=== PATIENT | male | born 1955 | race Caucasian/White ===

== ENCOUNTER 2018-01-06 08:20 | Emergency (ER) | payer MEDICAID ==
[~2018-01-06 08:20] MED LIST: AMITRIPTYLINE H50 MG PO; ATENOLOL25 MG PO; CHILDREN'S ASPI81 M1 PO; CLOPIDOGREL PO; DANTHRON75 MG PO; GLIPIZIDE10 M2 PO; KLOR-CON M1010 MEQ PO; LASIX40 M1 PO; LISINOPRIL10 MG PO; LORTAB 5/3251 TAB PO; RANITIDINE 150150 MG PO; SIMVASTATIN40 M1 PO; VITAMIN D32000 I1 PO
[2018-01-06 08:24] VITALS: BP 132/84
== END 2018-01-06 10:02 | disposition left against medical advice (07) ==
LOC: ED 08:20
DX: M20.5X1 Other deformities of toe(s) (acquired), right foot (principal); Z53.21 Procedure and treatment not carried out due to patient leaving prior to being seen by health care provider

== ENCOUNTER 2018-08-01 10:12 | Emergency (ER) | payer MEDICAID | END 2018-08-01 10:30 | disposition home or self-care (01) | LOC: ED 10:12 | DX: S93.501A Unspecified sprain of right great toe, initial encounter (principal); L60.0 Ingrowing nail; S93.504A Unspecified sprain of right lesser toe(s), initial encounter; E11.9 Type 2 diabetes mellitus without complications; I10 Essential (primary) hypertension; I25.10 Atherosclerotic heart disease of native coronary artery without angina pectoris; G47.33 Obstructive sleep apnea (adult) (pediatric); Z88.0 Allergy status to penicillin; W22.09XA Striking against other stationary object, initial encounter; Y92.009 Unspecified place in unspecified non-institutional (private) residence as the place of occurrence of the external cause ==

== ENCOUNTER 2018-11-05 11:03 | Emergency (ER) | payer MEDICAID ==
[~2018-11-05] VITALS: Ht 170.2 cm; Wt 119.5 kg
[~2018-11-05 11:03] MED LIST changes: +AMITRIPTYLINE H50 M1 PO; -AMITRIPTYLINE H50 MG PO; +CEPHALEXIN500 M1 PO; -DANTHRON75 MG PO; +NITROSTAT0.4 M1 SL; +NORCO 325 MG-51 TA1 PO; +NORCO 325 MG-7.1 TA1 PO; +SINGULAIR PO; +VITAMIN D 1001000 IU PO; -VITAMIN D32000 I1 PO
[2018-11-05 11:25] LABS: EOS # 0.2 (0.04-0.40); EOS % 2.5 % (0.0-4.0); HEMATOCRIT 45.9 % (42.0-52.0); HEMOGLOBIN 14.7 g/dL (13.5-18.0); LYMPH# 2.3 (1.50-4.00); MEAN CELL VOLUME 86 fl (78-100); MEAN CORPUSCULAR HEMOGLOBIN 27 pg (27-31); MEAN CORPUSCULAR HGB CONC 32 g/dL (33-37); MEAN PLATELET VOLUME 9.3 fl (7.4-10.4); MONO # 0.9 (0.20-0.80); NEU # 5.8 (1.40-6.50); PLATELET COUNT 230 K/mm3 (130-400); RED BLOOD COUNT 5.37 M/mm3 (4.20-5.60); RED CELL DISTRIBUTION WIDTH 14.2 % (11.5-14.5); WHITE BLOOD COUNT 9.2 K/mm3 (4.8-10.8)
[2018-11-05] MEDS ORDERED: CEPHALEXIN500 M1 PO (11:27)
[2018-11-05] MEDS ORDERED: VIBRAMYCIN HYC100 MG PO (11:38)
[2018-11-05 11:41] VITALS: BP 125/89
[2018-11-05 11:42] LABS: CALCIUM 9.3 mg/dL (8.3-10.5); POTASSIUM 4.1 mmol/L (3.5-5.1)
== END 2018-11-05 11:45 | disposition home or self-care (01) ==
LOC: ED 11:03
PROVIDERS: Nurse Practitioner Primary Care
DX: L03.114 Cellulitis of left upper limb (principal); I25.10 Atherosclerotic heart disease of native coronary artery without angina pectoris; I10 Essential (primary) hypertension; Z79.82 Long term (current) use of aspirin; Z79.02 Long term (current) use of antithrombotics/antiplatelets; Z85.038 Personal history of other malignant neoplasm of large intestine; Z90.49 Acquired absence of other specified parts of digestive tract; Z88.0 Allergy status to penicillin; W57.XXXA Bitten or stung by nonvenomous insect and other nonvenomous arthropods, initial encounter

== ENCOUNTER 2018-12-08 00:56 | Emergency (ER) | payer MEDICAID ==
[~2018-12-08] VITALS: Ht 170.2 cm; Wt 100.0 kg
[~2018-12-08 00:56] MED LIST changes: +VIBRAMYCIN HYC100 MG PO
[2018-12-08 01:37] VITALS: BP 126/92
[2018-12-08 02:06] LABS: EOS # 0.3 (0.04-0.40); EOS % 3.5 % (0.0-4.0); HEMATOCRIT 45.8 % (42.0-52.0); HEMOGLOBIN 14.6 g/dL (13.5-18.0); LYMPH# 2.2 (1.50-4.00); MEAN CELL VOLUME 86 fl (78-100); MEAN CORPUSCULAR HEMOGLOBIN 27 pg (27-31); MEAN CORPUSCULAR HGB CONC 32 g/dL (33-37); MEAN PLATELET VOLUME 9.6 fl (7.4-10.4); PLATELET COUNT 217 K/mm3 (130-400); RED BLOOD COUNT 5.34 M/mm3 (4.20-5.60); RED CELL DISTRIBUTION WIDTH 14.7 % (11.5-14.5); WHITE BLOOD COUNT 8.5 K/mm3 (4.8-10.8)
[2018-12-08 02:14] LABS: ALBUMIN 3.5 g/dL (3.4-4.8)
[2018-12-08 02:15] LABS: POTASSIUM 4.1 mmol/L (3.5-5.1)
[2018-12-08 02:16] LABS: CALCIUM 8.9 mg/dL (8.3-10.5)
[2018-12-08 02:19] LABS: TOTAL BILIRUBIN 0.3 mg/dL (0.2-1.2)
[2018-12-08] MEDS ORDERED: TOPROL XL 25MG25 MG PO (03:10)
[2018-12-08] MEDS ORDERED: CELEXA 20MG20 MG/TA1 PO (03:11)
[2018-12-08] MEDS ORDERED: ACID REDUCER 1150 MG PO (03:11)
[2018-12-08 03:13] LABS: URINE APPEARANCE CLEAR; URINE BILIRUBIN NEGATIVE (NEGATIVE); URINE BLOOD NEGATIVE (NEGATIVE); URINE COLOR YELLOW; URINE GLUCOSE NEGATIVE (NEGATIVE); URINE KETONE NEGATIVE (NEGATIVE); URINE LEUKOCYTE ESTERASE NEGATIVE (NEGATIVE); URINE MUCUS PRESENT (NOT PRESENT); URINE NITRATE NEGATIVE (NEGATIVE); URINE PROTEIN(semi-quant) NEGATIVE (NEGATIVE); URINE UROBILINOGEN NORMAL (NORMAL); URINE WBC 0-1 /hpf (0-3)
[2018-12-08] MEDS ORDERED: CYCLOBENZAPRINE10 M1 PO (03:28)
[2018-12-08] MEDS ORDERED: NORCO 325 MG-51 TA1 PO (03:28)
== END 2018-12-08 03:40 | disposition home or self-care (01) ==
LOC: ED 00:56
PROVIDERS: Physician Assistant
DX: S22.31XA Fracture of one rib, right side, initial encounter for closed fracture (principal); I25.10 Atherosclerotic heart disease of native coronary artery without angina pectoris; F32.9 Major depressive disorder, single episode, unspecified; E11.9 Type 2 diabetes mellitus without complications; Z79.4 Long term (current) use of insulin; Z95.5 Presence of coronary angioplasty implant and graft; Z98.890 Other specified postprocedural states; Z79.82 Long term (current) use of aspirin; Z88.0 Allergy status to penicillin; W06.XXXA Fall from bed, initial encounter; Y92.009 Unspecified place in unspecified non-institutional (private) residence as the place of occurrence of the external cause
CPT/HCPCS: J1885

== ENCOUNTER → 2019-01-19 | Outpatient (CLI) | payer MEDICAID ==
[~2019-01-19] MED LIST changes: +ACID REDUCER 1150 MG PO; +CELEXA 20MG20 MG/TA1 PO; +CYCLOBENZAPRINE10 M1 PO; +TOPROL XL 25MG25 MG PO
[2019-01-19 09:32] LABS: EOS # 0.2 (0.04-0.40); EOS % 2.7 % (0.0-4.0); HEMATOCRIT 49.7 % (42.0-52.0); HEMOGLOBIN 15.9 g/dL (13.5-18.0); LYMPH# 1.4 (1.50-4.00); MEAN CELL VOLUME 85 fl (78-100); MEAN CORPUSCULAR HEMOGLOBIN 27 pg (27-31); MEAN CORPUSCULAR HGB CONC 32 g/dL (33-37); MEAN PLATELET VOLUME 9.6 fl (7.4-10.4); MONO # 0.5 (0.20-0.80); NEU # 4.1 (1.40-6.50); PLATELET COUNT 248 K/mm3 (130-400); RED BLOOD COUNT 5.87 M/mm3 (4.20-5.60); RED CELL DISTRIBUTION WIDTH 14.6 % (11.5-14.5); WHITE BLOOD COUNT 6.2 K/mm3 (4.8-10.8)
[2019-01-19 09:39] LABS: ALBUMIN 3.8 g/dL (3.4-4.8); CALCIUM 9.6 mg/dL (8.3-10.5)
[2019-01-19 09:42] LABS: URINE APPEARANCE CLEAR; URINE COLOR YELLOW; URINE KETONE NEGATIVE (NEGATIVE); URINE PROTEIN(semi-quant) TRACE mg/dL (NEGATIVE)
[2019-01-19 09:43] LABS: TOTAL BILIRUBIN 0.5 mg/dL (0.2-1.2); URINE BILIRUBIN NEGATIVE (NEGATIVE); URINE BLOOD NEGATIVE (NEGATIVE); URINE LEUKOCYTE ESTERASE NEGATIVE (NEGATIVE); URINE MUCUS PRESENT (NOT PRESENT); URINE NITRATE NEGATIVE (NEGATIVE); URINE UROBILINOGEN NORMAL (NORMAL); URINE WBC 0-1 /hpf (0-3)
[2019-01-19 10:45] LABS: ERYTHROCYTE SEDIMENTATION RATE 5 mm/hr (0-20)
[2019-01-20 00:15] LABS: TESTOSTERONE 231 ng/dL (221-716)
== END ==
LOC: LAB 09:18
PROVIDERS: Internal Medicine
DX: I25.10 Atherosclerotic heart disease of native coronary artery without angina pectoris (principal); I10 Essential (primary) hypertension; E78.2 Mixed hyperlipidemia; E11.9 Type 2 diabetes mellitus without complications; R20.2 Paresthesia of skin

== ENCOUNTER → 2019-03-23 | Outpatient (CLI) | payer MEDICARE, MEDICAID | LOC: CARDREHAB 10:39 | DX: I25.10 Atherosclerotic heart disease of native coronary artery without angina pectoris (principal); Z86.79 Personal history of other diseases of the circulatory system; R06.09 Other forms of dyspnea | CPT/HCPCS: A9500 ==

== ENCOUNTER → 2019-03-27 | Outpatient (CLI) | payer MEDICARE, MEDICAID ==
[2019-03-27 08:40] LABS: POTASSIUM 4.3 mmol/L (3.5-5.1)
[2019-03-27 08:41] LABS: CALCIUM 8.7 mg/dL (8.3-10.5)
== END ==
LOC: RAD 03-26 10:00 → LAB 08:18 → RAD 08:18
PROVIDERS: Internal Medicine
DX: I10 Essential (primary) hypertension (principal); I25.10 Atherosclerotic heart disease of native coronary artery without angina pectoris; Z77.090 Contact with and (suspected) exposure to asbestos
CPT/HCPCS: Q9967

== ENCOUNTER → 2019-05-10 | Outpatient (CLI) | payer MEDICARE, MEDICAID | LOC: VAS 13:00 → RAD 13:00 → VAS 13:10 | DX: M79.604 Pain in right leg (principal); M79.605 Pain in left leg; R20.0 Anesthesia of skin ==

== ENCOUNTER 2019-08-28 12:18 | Emergency (ER) | payer MEDICARE, MEDICAID ==
[~2019-08-28] VITALS: Ht 170.2 cm; Wt 118.2 kg
[~2019-08-28 12:18] MED LIST changes: +ASPIRIN E.C. 8181 MG PO; -CELEXA 20MG20 MG/TA1 PO; -CHILDREN'S ASPI81 M1 PO; +CITALOPRAM40 MG PO; -VITAMIN D 1001000 IU PO; +VITAMIN D3250 MC2 PO
[2019-08-28 12:22] VITALS: BP 170/105
[2019-08-28] MEDS ORDERED: DICLOFENAC SOD100 GM TOP (12:52)
[2019-08-28] MEDS ORDERED: FAMOTIDINE40 M1 PO (12:55)
[2019-08-28] MEDS ORDERED: CLOPIDOGREL PO (13:24)
== END 2019-08-28 12:56 | disposition left against medical advice (07) ==
LOC: ED 12:18
DX: K02.9 Dental caries, unspecified (principal); K03.81 Cracked tooth; I25.10 Atherosclerotic heart disease of native coronary artery without angina pectoris; I10 Essential (primary) hypertension; G47.33 Obstructive sleep apnea (adult) (pediatric); Z79.82 Long term (current) use of aspirin; Z85.038 Personal history of other malignant neoplasm of large intestine; Z87.891 Personal history of nicotine dependence; Z95.5 Presence of coronary angioplasty implant and graft

== ENCOUNTER 2019-10-01 12:39 | Emergency (ER) | payer MEDICARE, MEDICAID ==
[~2019-10-01] VITALS: Ht 167.6 cm; Wt 108.8 kg
[~2019-10-01 12:39] MED LIST changes: +DICLOFENAC SOD100 GM TOP; +FAMOTIDINE40 M1 PO
[2019-10-01 14:48] VITALS: BP 163/105
== END 2019-10-01 14:40 | disposition home or self-care (01) ==
LOC: ED 12:39
DX: M25.512 Pain in left shoulder (principal); S00.93XA Contusion of unspecified part of head, initial encounter; S06.9X9A Unspecified intracranial injury with loss of consciousness of unspecified duration, initial encounter; X58.XXXA Exposure to other specified factors, initial encounter; J44.9 Chronic obstructive pulmonary disease, unspecified; I25.10 Atherosclerotic heart disease of native coronary artery without angina pectoris; I10 Essential (primary) hypertension; E11.9 Type 2 diabetes mellitus without complications

== ENCOUNTER → 2019-10-18 | Outpatient (CLI) | payer MEDICARE, MEDICAID ==
[2019-10-01 14:48] VITALS: BP 163/105
== END ==
LOC: LAB 11:13
DX: Z53.9 Procedure and treatment not carried out, unspecified reason (principal)

== ENCOUNTER 2020-02-12 17:31 | Emergency (ER) | payer MEDICARE, MEDICAID ==
[~2020-02-12] VITALS: Ht 167.6 cm; Wt 122.7 kg
[2020-02-12 17:59] LABS: EOS # 0.2 (0.04-0.40); EOS % 2.8 % (0.0-4.0); HEMATOCRIT 47.8 % (42.0-52.0); HEMOGLOBIN 16.1 g/dL (13.5-18.0); LYMPH# 2.4 (1.50-4.00); MEAN CELL VOLUME 86 fl (78-100); MEAN CORPUSCULAR HEMOGLOBIN 29 pg (27-31); MEAN CORPUSCULAR HGB CONC 34 g/dL (33-37); MEAN PLATELET VOLUME 9.4 fl (7.4-10.4); MONO # 0.7 (0.20-0.80); NEU # 5.2 (1.40-6.50); PLATELET COUNT 205 K/mm3 (130-400); RED BLOOD COUNT 5.58 M/mm3 (4.20-5.60); RED CELL DISTRIBUTION WIDTH 13.5 % (11.5-14.5); WHITE BLOOD COUNT 8.6 K/mm3 (4.8-10.8)
[2020-02-12 18:08] LABS: POTASSIUM 3.9 mmol/L (3.5-5.1)
[2020-02-12 18:09] LABS: CALCIUM 9.1 mg/dL (8.3-10.5)
[2020-02-12 18:10] LABS: TOTAL PROTEIN 7.1 g/dL (6.2-8.1)
[2020-02-12 18:12] LABS: TOTAL BILIRUBIN 0.5 mg/dL (0.2-1.2)
[2020-02-12 18:15] LABS: URINE APPEARANCE CLEAR; URINE BILIRUBIN NEGATIVE (NEGATIVE); URINE BLOOD NEGATIVE (NEGATIVE); URINE COLOR YELLOW; URINE GLUCOSE NEGATIVE (NEGATIVE); URINE KETONE NEGATIVE (NEGATIVE); URINE LEUKOCYTE ESTERASE NEGATIVE (NEGATIVE); URINE NITRATE NEGATIVE (NEGATIVE); URINE PROTEIN(semi-quant) NEGATIVE (NEGATIVE); URINE UROBILINOGEN NORMAL (NORMAL); URINE WBC 0-1 /hpf (0-3)
[2020-02-12] MEDS ORDERED: CILOSTAZOL50 M1 PO (18:17)
[2020-02-12] MEDS ORDERED: ATENOLOL25 MG PO (18:20)
[2020-02-12 19:25] LABS: TROPONIN-I 0.23 ng/mL (<0.030)
[2020-02-12 20:19] LABS: D-DIMER 0.79 mg/L FEU (0.15-0.50)
[2020-02-12 21:15] VITALS: BP 163/100
== END 2020-02-12 21:30 | disposition left against medical advice (07) ==
LOC: ED 17:31
PROVIDERS: Nurse Practitioner Family
DX: R10.31 Right lower quadrant pain (principal); R79.89 Other specified abnormal findings of blood chemistry; I11.0 Hypertensive heart disease with heart failure; R06.02 Shortness of breath; E11.9 Type 2 diabetes mellitus without complications; I50.9 Heart failure, unspecified; I25.2 Old myocardial infarction; I25.10 Atherosclerotic heart disease of native coronary artery without angina pectoris; J44.9 Chronic obstructive pulmonary disease, unspecified; Z87.891 Personal history of nicotine dependence; Z95.5 Presence of coronary angioplasty implant and graft; Z85.038 Personal history of other malignant neoplasm of large intestine; Z79.84 Long term (current) use of oral hypoglycemic drugs; Z79.82 Long term (current) use of aspirin; Z79.02 Long term (current) use of antithrombotics/antiplatelets
CPT/HCPCS: J1885; J2405; J7030; Q9967

== ENCOUNTER → 2020-02-25 | Outpatient (CLI) | payer MEDICARE, MEDICAID ==
[2020-02-12 21:15] VITALS: BP 163/100
[~2020-02-25] MED LIST changes: +CILOSTAZOL50 M1 PO
[2020-02-25 09:38] LABS: BASO # 0.1 (0.02-0.10); EOS # 0.3 (0.04-0.40); EOS % 4.2 % (0.0-4.0); HEMATOCRIT 48.5 % (42.0-52.0); HEMOGLOBIN 15.8 g/dL (13.5-18.0); MEAN CELL VOLUME 87 fl (78-100); MEAN CORPUSCULAR HEMOGLOBIN 29 pg (27-31); MEAN CORPUSCULAR HGB CONC 33 g/dL (33-37); MEAN PLATELET VOLUME 9.4 fl (7.4-10.4); MONO # 0.8 (0.20-0.80); NEU # 3.8 (1.40-6.50); PLATELET COUNT 212 K/mm3 (130-400); RED BLOOD COUNT 5.55 M/mm3 (4.20-5.60); RED CELL DISTRIBUTION WIDTH 13.3 % (11.5-14.5)
[2020-02-25 09:42] LABS: ALBUMIN 3.9 g/dL (3.4-4.8); POTASSIUM 4.2 mmol/L (3.5-5.1)
[2020-02-25 09:43] LABS: CALCIUM 9.3 mg/dL (8.3-10.5)
[2020-02-25 09:44] LABS: TOTAL PROTEIN 7.1 g/dL (6.2-8.1)
[2020-02-25 09:46] LABS: TOTAL BILIRUBIN 0.3 mg/dL (0.2-1.2)
[2020-02-25 09:51] LABS: MAGNESIUM 1.84 mg/dL (1.60-2.60)
[2020-02-25 10:00] LABS: URINE APPEARANCE CLEAR; URINE BILIRUBIN NEGATIVE (NEGATIVE); URINE BLOOD NEGATIVE (NEGATIVE); URINE COLOR YELLOW; URINE GLUCOSE NEGATIVE (NEGATIVE); URINE KETONE NEGATIVE (NEGATIVE); URINE LEUKOCYTE ESTERASE NEGATIVE (NEGATIVE); URINE MUCUS PRESENT (NOT PRESENT); URINE NITRATE NEGATIVE (NEGATIVE); URINE PROTEIN(semi-quant) TRACE mg/dL (NEGATIVE); URINE UROBILINOGEN NORMAL (NORMAL)
[2020-02-25 10:54] LABS: ERYTHROCYTE SEDIMENTATION RATE 6 mm/hr (0-20)
[2020-02-25 22:55] LABS: TESTOSTERONE 335 ng/dL (221-716)
== END ==
LOC: LAB 09:12
PROVIDERS: Internal Medicine
DX: Z12.5 Encounter for screening for malignant neoplasm of prostate (principal); E11.9 Type 2 diabetes mellitus without complications; E78.2 Mixed hyperlipidemia; I10 Essential (primary) hypertension; I25.10 Atherosclerotic heart disease of native coronary artery without angina pectoris; N52.9 Male erectile dysfunction, unspecified

== ENCOUNTER → 2020-03-20 | Outpatient (CLI) | payer MEDICARE, MEDICAID | LOC: VAS 15:30 | DX: I25.10 Atherosclerotic heart disease of native coronary artery without angina pectoris (principal); I10 Essential (primary) hypertension ==

== ENCOUNTER → 2020-04-21 | Outpatient (CLI) | payer MEDICARE, MEDICAID ==
[2020-04-21 10:20] LABS: BASO # 0.1 (0.02-0.10); EOS # 0.2 (0.04-0.40); EOS % 1.6 % (0.0-4.0); HEMATOCRIT 51.9 % (42.0-52.0); HEMOGLOBIN 16.6 g/dL (13.5-18.0); LYMPH# 2.3 (1.50-4.00); MEAN CELL VOLUME 89 fl (78-100); MEAN CORPUSCULAR HEMOGLOBIN 29 pg (27-31); MEAN CORPUSCULAR HGB CONC 32 g/dL (33-37); MEAN PLATELET VOLUME 9.5 fl (7.4-10.4); MONO # 0.9 (0.20-0.80); NEU # 6.3 (1.40-6.50); PLATELET COUNT 237 K/mm3 (130-400); RED BLOOD COUNT 5.82 M/mm3 (4.20-5.60); RED CELL DISTRIBUTION WIDTH 14.2 % (11.5-14.5); WHITE BLOOD COUNT 9.7 K/mm3 (4.8-10.8)
[2020-04-21 10:24] LABS: ALBUMIN 4.1 g/dL (3.4-4.8); POTASSIUM 4.3 mmol/L (3.5-5.1)
[2020-04-21 10:25] LABS: CALCIUM 9.3 mg/dL (8.3-10.5)
[2020-04-21 10:27] LABS: TOTAL PROTEIN 8.1 g/dL (6.2-8.1)
[2020-04-21 10:28] LABS: TOTAL BILIRUBIN 0.4 mg/dL (0.2-1.2)
== END ==
LOC: LAB 09:50
PROVIDERS: Internal Medicine
DX: E11.9 Type 2 diabetes mellitus without complications (principal)

== ENCOUNTER → 2020-06-04 | Outpatient (CLI) | payer MEDICARE, MEDICAID | LOC: LAB 08:55 | DX: U07.1 COVID-19 (principal) ==

== ENCOUNTER → 2020-09-15 | Outpatient (CLI) | payer MEDICARE, MEDICAID ==
[~2020-09-15] MED LIST changes: +ATORVASTATIN CA10 MG PO; +CELEXA 20MG20 MG/TA1 PO; +METOPROLOL SUCC25 M1 PO; +NITROGLYCERIN0.4 M1 SL; +PROAIR HFA0.09 MG/AC IH; +VITAMIN D325 MC2 PO; -VITAMIN D3250 MC2 PO
[2020-09-15 10:31] LABS: BASO # 0.1 (0.02-0.10); EOS # 0.2 (0.04-0.40); EOS % 2.4 % (0.0-4.0); HEMATOCRIT 48.2 % (42.0-52.0); HEMOGLOBIN 15.6 g/dL (13.5-18.0); LYMPH# 1.6 (1.50-4.00); MEAN CELL VOLUME 89 fl (78-100); MEAN CORPUSCULAR HEMOGLOBIN 29 pg (27-31); MEAN CORPUSCULAR HGB CONC 32 g/dL (33-37); MEAN PLATELET VOLUME 9.8 fl (7.4-10.4); MONO # 0.6 (0.20-0.80); NEU # 3.8 (1.40-6.50); PLATELET COUNT 211 K/mm3 (130-400); RED BLOOD COUNT 5.43 M/mm3 (4.20-5.60); RED CELL DISTRIBUTION WIDTH 13.2 % (11.5-14.5); WHITE BLOOD COUNT 6.2 K/mm3 (4.8-10.8)
[2020-09-15 10:50] LABS: ALBUMIN 3.6 g/dL (3.4-4.8); POTASSIUM 4.2 mmol/L (3.5-5.1)
[2020-09-15 10:51] LABS: CALCIUM 8.7 mg/dL (8.3-10.5)
[2020-09-15 10:52] LABS: TOTAL PROTEIN 6.9 g/dL (6.2-8.1)
[2020-09-15 10:54] LABS: TOTAL BILIRUBIN 0.4 mg/dL (0.2-1.2)
[2020-09-15 11:45] LABS: ERYTHROCYTE SEDIMENTATION RATE 2 mm/hr (0-20)
== END ==
LOC: LAB 10:09
PROVIDERS: Internal Medicine
DX: I10 Essential (primary) hypertension (principal); E78.2 Mixed hyperlipidemia; E11.9 Type 2 diabetes mellitus without complications; K90.9 Intestinal malabsorption, unspecified

== ENCOUNTER 2021-03-10 11:48 | Emergency (ER) | payer MEDICARE, MEDICAID ==
[~2021-03-10] VITALS: Ht 170.2 cm; Wt 111.1 kg
[~2021-03-10 11:48] MED LIST changes: -ATORVASTATIN CA10 MG PO; -CELEXA 20MG20 MG/TA1 PO; -METOPROLOL SUCC25 M1 PO; -NITROGLYCERIN0.4 M1 SL; -PROAIR HFA0.09 MG/AC IH
[2021-03-10 12:45] LABS: BASO # 0.06 K/mm3 (0.02-0.10); EOS # 0.13 K/mm3 (0.04-0.40); EOS % 2.2 % (0.0-4.0); HEMATOCRIT 49.7 % (42.0-52.0); HEMOGLOBIN 16.4 g/dL (13.5-18.0); LYMPH# 1.29 K/mm3 (1.50-4.00); MEAN CELL VOLUME 88 fl (78-100); MEAN CORPUSCULAR HEMOGLOBIN 29 pg (27-31); MEAN CORPUSCULAR HGB CONC 33 g/dL (33-37); MEAN PLATELET VOLUME 9.7 fl (7.4-10.4); MONO # 0.52 K/mm3 (0.20-0.80); PLATELET COUNT 204 K/mm3 (130-400); RED BLOOD COUNT 5.62 M/mm3 (4.20-5.60); RED CELL DISTRIBUTION WIDTH 12.4 % (11.5-14.5); WHITE BLOOD COUNT 5.8 K/mm3 (4.8-10.8)
[2021-03-10 12:54] LABS: ALBUMIN 3.5 g/dL (3.4-4.8); POTASSIUM 3.9 mmol/L (3.5-5.1)
[2021-03-10 12:56] LABS: CALCIUM 9.5 mg/dL (8.3-10.5)
[2021-03-10 12:57] LABS: TOTAL PROTEIN 6.8 g/dL (6.2-8.1)
[2021-03-10 12:59] LABS: TOTAL BILIRUBIN 0.5 mg/dL (0.2-1.2)
[2021-03-10] MEDS ORDERED: PROAIR HFA0.09 MG/AC IH (13:26)
[2021-03-10] MEDS ORDERED: ATORVASTATIN CA10 MG PO (13:27)
[2021-03-10] MEDS ORDERED: CELEXA 20MG20 MG/TA1 PO (13:28)
[2021-03-10] MEDS ORDERED: DICLOFENAC SOD100 GM TOP (13:29)
[2021-03-10] MEDS ORDERED: METOPROLOL SUCC25 M1 PO (13:30)
[2021-03-10] MEDS ORDERED: NITROGLYCERIN0.4 M1 SL (13:31)
[2021-03-10 15:27] LABS: URINE APPEARANCE CLEAR; URINE COLOR YELLOW
[2021-03-10 15:28] LABS: URINE BILIRUBIN NEGATIVE (NEGATIVE); URINE BLOOD NEGATIVE (NEGATIVE); URINE GLUCOSE NEGATIVE (NEGATIVE); URINE KETONE NEGATIVE (NEGATIVE); URINE LEUKOCYTE ESTERASE NEGATIVE (NEGATIVE); URINE NITRATE NEGATIVE (NEGATIVE); URINE PROTEIN(semi-quant) TRACE mg/dL (NEGATIVE); URINE UROBILINOGEN NORMAL (NORMAL); URINE WBC 0-1 /hpf (0-3)
[2021-03-10 17:12] VITALS: BP 147/96
== END 2021-03-10 17:12 | disposition home or self-care (01) ==
LOC: ED 11:48
PROVIDERS: Physician Assistant
DX: K42.9 Umbilical hernia without obstruction or gangrene (principal); E86.0 Dehydration; E11.9 Type 2 diabetes mellitus without complications; J44.9 Chronic obstructive pulmonary disease, unspecified; E66.01 Morbid (severe) obesity due to excess calories; Z87.442 Personal history of urinary calculi; Z79.899 Other long term (current) drug therapy; Z68.38 Body mass index [BMI] 38.0-38.9, adult
CPT/HCPCS: J1885; J7030; Q9967

== ENCOUNTER → 2021-09-29 | Outpatient (CLI) | payer MEDICARE, MEDICAID ==
[~2021-09-29] MED LIST changes: +ATORVASTATIN CA10 MG PO; +CELEXA 20MG20 MG/TA1 PO; +METOPROLOL SUCC25 M1 PO; +NITROGLYCERIN0.4 M1 SL; +PROAIR HFA0.09 MG/AC IH
[2021-09-29 16:42] LABS: BASO # 0.07 K/mm3 (0.02-0.10); EOS # 0.19 K/mm3 (0.04-0.40); EOS % 2.1 % (0.0-4.0); HEMATOCRIT 45.3 % (42.0-52.0); HEMOGLOBIN 14.5 g/dL (13.5-18.0); LYMPH# 1.78 K/mm3 (1.50-4.00); MEAN CELL VOLUME 88 fl (78-100); MEAN CORPUSCULAR HEMOGLOBIN 28 pg (27-31); MEAN CORPUSCULAR HGB CONC 32 g/dL (33-37); MEAN PLATELET VOLUME 9.6 fl (7.4-10.4); MONO # 0.81 K/mm3 (0.20-0.80); NEU # 6.13 K/mm3 (1.40-6.50); PLATELET COUNT 228 K/mm3 (130-400); RED BLOOD COUNT 5.13 M/mm3 (4.20-5.60); RED CELL DISTRIBUTION WIDTH 13.6 % (11.5-14.5)
[2021-09-29 16:46] LABS: ALBUMIN 3.5 g/dL (3.4-4.8)
[2021-09-29 16:48] LABS: TOTAL PROTEIN 6.7 g/dL (6.2-8.1)
[2021-09-29 16:50] LABS: TOTAL BILIRUBIN 0.6 mg/dL (0.2-1.2)
[2021-09-29 16:55] LABS: MAGNESIUM 1.9 mg/dL (1.60-2.60)
[2021-09-29 17:16] LABS: URINE COLOR YELLOW
[2021-09-29 17:17] LABS: URINE APPEARANCE CLEAR; URINE BILIRUBIN NEGATIVE (NEGATIVE); URINE BLOOD NEGATIVE (NEGATIVE); URINE GLUCOSE NEGATIVE (NEGATIVE); URINE KETONE NEGATIVE (NEGATIVE); URINE LEUKOCYTE ESTERASE NEGATIVE (NEGATIVE); URINE NITRATE NEGATIVE (NEGATIVE); URINE PROTEIN(semi-quant) NEGATIVE (NEGATIVE); URINE UROBILINOGEN NORMAL (NORMAL); URINE WBC 0-1 /hpf (0-3)
[2021-09-29 17:55] LABS: ERYTHROCYTE SEDIMENTATION RATE 18 mm/hr (0-20)
[2021-09-30 18:11] LABS: CREATININE OTHER SOURCE 79 mg/dL (())
== END ==
LOC: LAB 16:11
PROVIDERS: Internal Medicine
DX: C18.9 Malignant neoplasm of colon, unspecified (principal); G47.33 Obstructive sleep apnea (adult) (pediatric); I10 Essential (primary) hypertension; E78.2 Mixed hyperlipidemia; E11.9 Type 2 diabetes mellitus without complications; K90.9 Intestinal malabsorption, unspecified; I25.10 Atherosclerotic heart disease of native coronary artery without angina pectoris; F33.9 Major depressive disorder, recurrent, unspecified; J43.9 Emphysema, unspecified; M15.0 Primary generalized (osteo)arthritis

== ENCOUNTER → 2021-10-27 | Outpatient (CLI) | payer MEDICARE, MEDICAID | LOC: LAB 15:09 | DX: I25.10 Atherosclerotic heart disease of native coronary artery without angina pectoris (principal); G47.33 Obstructive sleep apnea (adult) (pediatric); I10 Essential (primary) hypertension; E11.9 Type 2 diabetes mellitus without complications; K90.9 Intestinal malabsorption, unspecified; E78.2 Mixed hyperlipidemia; C18.9 Malignant neoplasm of colon, unspecified; F33.9 Major depressive disorder, recurrent, unspecified; J43.9 Emphysema, unspecified; M15.0 Primary generalized (osteo)arthritis; N52.9 Male erectile dysfunction, unspecified ==

== ENCOUNTER 2021-12-30 08:40 | Emergency (ER) | payer MEDICARE, MEDICAID ==
[~2021-12-30] VITALS: Ht 170.2 cm; Wt 110.8 kg
[2021-12-30] MEDS ORDERED: AMITRIPTYLINE H50 M1 PO (09:26)
[2021-12-30] MEDS ORDERED: FUROSEMIDE40 MG PO (09:32)
[2021-12-30] MEDS ORDERED: SINGULAIR 110 MG/TAB PO (09:33)
[2021-12-30] MEDS ORDERED: POTASSIUM CHLO10 ME8 PO (09:33)
[2021-12-30] MEDS ORDERED: GLIPIZIDE10 M2 PO (09:34)
[2021-12-30] MEDS ORDERED: FERREX 150150 MG PO (09:35)
[2021-12-30 19:40] VITALS: BP 150/92
== END 2021-12-30 19:40 | disposition home or self-care (01) ==
LOC: ED 08:40
DX: S42.002A Fracture of unspecified part of left clavicle, initial encounter for closed fracture (principal); S42.102A Fracture of unspecified part of scapula, left shoulder, initial encounter for closed fracture; S22.42XS Multiple fractures of ribs, left side, sequela; F17.210 Nicotine dependence, cigarettes, uncomplicated; Z28.310 Unvaccinated for COVID-19; V49.40XA Driver injured in collision with unspecified motor vehicles in traffic accident, initial encounter

== ENCOUNTER → 2021-12-31 | Outpatient (CLI) | payer MEDICARE, MEDICAID ==
[~2021-12-31] MED LIST changes: +FERREX 150150 MG PO; +FUROSEMIDE40 MG PO; +POTASSIUM CHLO10 ME8 PO; +SINGULAIR 110 MG/TAB PO
[2021-12-31 08:47] LABS: BASO # 0.05 K/mm3 (0.02-0.10); EOS # 0.33 K/mm3 (0.04-0.40); EOS % 4.5 % (0.0-4.0); HEMATOCRIT 37.7 % (42.0-52.0); HEMOGLOBIN 11.2 g/dL (13.5-18.0); LYMPH# 1.57 K/mm3 (1.50-4.00); MEAN CELL VOLUME 91 fl (78-100); MEAN CORPUSCULAR HEMOGLOBIN 27 pg (27-31); MEAN CORPUSCULAR HGB CONC 30 g/dL (33-37); MEAN PLATELET VOLUME 8.9 fl (7.4-10.4); MONO # 0.72 K/mm3 (0.20-0.80); NEU # 4.63 K/mm3 (1.40-6.50); PLATELET COUNT 333 K/mm3 (130-400); RED BLOOD COUNT 4.15 M/mm3 (4.20-5.60); RED CELL DISTRIBUTION WIDTH 17.1 % (11.5-14.5); WHITE BLOOD COUNT 7.3 K/mm3 (4.8-10.8)
[2021-12-31 08:52] LABS: ALBUMIN 3.7 g/dL (3.4-4.8)
[2021-12-31 08:53] LABS: CALCIUM 9.3 mg/dL (8.3-10.5)
[2021-12-31 08:55] LABS: TOTAL PROTEIN 7.4 g/dL (6.2-8.1)
[2021-12-31 08:56] LABS: TOTAL BILIRUBIN 0.8 mg/dL (0.2-1.2)
[2021-12-31 09:01] LABS: MAGNESIUM 1.78 mg/dL (1.60-2.60)
[2021-12-31 10:11] LABS: ERYTHROCYTE SEDIMENTATION RATE 44 mm/hr (0-20)
== END ==
LOC: LAB 08:27
PROVIDERS: Internal Medicine
DX: C18.9 Malignant neoplasm of colon, unspecified (principal); I10 Essential (primary) hypertension; E78.2 Mixed hyperlipidemia; E11.9 Type 2 diabetes mellitus without complications; E55.9 Vitamin D deficiency, unspecified; G47.33 Obstructive sleep apnea (adult) (pediatric); I25.10 Atherosclerotic heart disease of native coronary artery without angina pectoris; K90.9 Intestinal malabsorption, unspecified; F33.9 Major depressive disorder, recurrent, unspecified; J43.9 Emphysema, unspecified; M15.0 Primary generalized (osteo)arthritis

== ENCOUNTER 2022-01-05 12:48 | Inpatient (IN) | payer MEDICARE, MEDICAID ==
[~2022-01-05] VITALS: Ht 170.2 cm; Wt 99.0 kg
[2022-01-06] MEDS ORDERED: LISINOPRIL10 MG PO (13:50)
[2022-01-06] MEDS ORDERED: NORCO 325 MG-7.1 TA1 PO (15:44)
[2022-01-06 18:04] VITALS: BP 138/89
[2022-01-07 05:01] VITALS: BP 134/84
== END 2022-01-07 09:11 | disposition home or self-care (01) | DRG 561 ==
LOC: MED/SURG 12:48
PROVIDERS: ADMIT Physician Assistant
DX: S42.002D Fracture of unspecified part of left clavicle, subsequent encounter for fracture with routine healing (principal); S42.102D Fracture of unspecified part of scapula, left shoulder, subsequent encounter for fracture with routine healing; S02.85XD Fracture of orbit, unspecified, subsequent encounter for fracture with routine healing; V89.2XXD Person injured in unspecified motor-vehicle accident, traffic, subsequent encounter; I10 Essential (primary) hypertension; E11.9 Type 2 diabetes mellitus without complications; I25.10 Atherosclerotic heart disease of native coronary artery without angina pectoris; G47.33 Obstructive sleep apnea (adult) (pediatric); F32.9 Major depressive disorder, single episode, unspecified; F41.9 Anxiety disorder, unspecified; J30.9 Allergic rhinitis, unspecified; G47.00 Insomnia, unspecified; D64.9 Anemia, unspecified; E78.5 Hyperlipidemia, unspecified; R53.81 Other malaise; F17.210 Nicotine dependence, cigarettes, uncomplicated; Z79.82 Long term (current) use of aspirin; Z95.5 Presence of coronary angioplasty implant and graft

== ENCOUNTER → 2023-02-21 | Outpatient (CLI) | payer MEDICARE ==
[2023-02-21 09:24] LABS: BASO # 0.05 K/mm3 (0.02-0.10); EOS # 0.17 K/mm3 (0.04-0.40); EOS % 2.3 % (0.0-4.0); HEMATOCRIT 50.4 % (42.0-52.0); HEMOGLOBIN 15.8 g/dL (13.5-18.0); LYMPH# 1.34 K/mm3 (1.50-4.00); MEAN CELL VOLUME 90 fl (78-100); MEAN CORPUSCULAR HEMOGLOBIN 28 pg (27-31); MEAN CORPUSCULAR HGB CONC 31 g/dL (33-37); MEAN PLATELET VOLUME 9.8 fl (7.4-10.4); MONO # 0.64 K/mm3 (0.20-0.80); NEU # 5.32 K/mm3 (1.40-6.50); PLATELET COUNT 198 K/mm3 (130-400); RED BLOOD COUNT 5.58 M/mm3 (4.20-5.60); RED CELL DISTRIBUTION WIDTH 13.2 % (11.5-14.5); WHITE BLOOD COUNT 7.5 K/mm3 (4.8-10.8)
[2023-02-21 09:27] LABS: ALBUMIN 3.8 g/dL (3.4-4.8); POTASSIUM 4.4 mmol/L (3.5-5.1)
[2023-02-21 09:28] LABS: CALCIUM 9.1 mg/dL (8.3-10.5)
[2023-02-21 09:30] LABS: TOTAL PROTEIN 6.8 g/dL (6.2-8.1)
[2023-02-21 09:32] LABS: TOTAL BILIRUBIN 0.9 mg/dL (0.2-1.2)
[2023-02-21 09:59] LABS: URINE APPEARANCE CLEAR; URINE COLOR YELLOW
[2023-02-21 10:00] LABS: URINE BILIRUBIN 2+ (NEGATIVE); URINE BLOOD TRACE (NEGATIVE); URINE GLUCOSE NEGATIVE (NEGATIVE); URINE KETONE NEGATIVE (NEGATIVE); URINE LEUKOCYTE ESTERASE NEGATIVE (NEGATIVE); URINE MUCUS PRESENT (NOT PRESENT); URINE NITRATE NEGATIVE (NEGATIVE); URINE PROTEIN(semi-quant) TRACE (NEGATIVE); URINE UROBILINOGEN NORMAL (NORMAL); URINE WBC 0-1 /hpf (0-3)
[2023-02-21 10:32] LABS: ERYTHROCYTE SEDIMENTATION RATE 9 mm/hr (0-20)
== END ==
LOC: LAB 09:02
PROVIDERS: Internal Medicine
DX: Z12.5 Encounter for screening for malignant neoplasm of prostate (principal); C18.9 Malignant neoplasm of colon, unspecified; J43.9 Emphysema, unspecified; R06.09 Other forms of dyspnea; N52.9 Male erectile dysfunction, unspecified; K90.9 Intestinal malabsorption, unspecified; I10 Essential (primary) hypertension; I25.10 Atherosclerotic heart disease of native coronary artery without angina pectoris; E11.9 Type 2 diabetes mellitus without complications; G47.01 Insomnia due to medical condition; G47.33 Obstructive sleep apnea (adult) (pediatric); M25.512 Pain in left shoulder; M15.0 Primary generalized (osteo)arthritis; F33.9 Major depressive disorder, recurrent, unspecified; E78.2 Mixed hyperlipidemia; E55.9 Vitamin D deficiency, unspecified; Z99.81 Dependence on supplemental oxygen

== ENCOUNTER 2024-01-06 14:00 | Observation (INO) | payer MEDICARE ==
[~2024-01-06] VITALS: Ht 170.2 cm; Wt 116.0 kg
[2024-01-06 14:35] LABS: BASO # 0.05 K/mm3 (0.02-0.10); EOS # 0.24 K/mm3 (0.04-0.40); HEMATOCRIT 45.1 % (42.0-52.0); HEMOGLOBIN 14.7 g/dL (13.5-18.0); LYMPH# 0.99 K/mm3 (1.50-4.00); MEAN CELL VOLUME 89 fl (78-100); MEAN CORPUSCULAR HEMOGLOBIN 29 pg (27-31); MEAN CORPUSCULAR HGB CONC 33 g/dL (33-37); MEAN PLATELET VOLUME 10.2 fl (7.4-10.4); MONO # 1.07 K/mm3 (0.20-0.80); NEU # 9.65 K/mm3 (1.40-6.50); PLATELET COUNT 218 K/mm3 (130-400); RED BLOOD COUNT 5.09 M/mm3 (4.20-5.60); RED CELL DISTRIBUTION WIDTH 13.1 % (11.5-14.5)
[2024-01-06 15:10] LABS: ALBUMIN 4.1 g/dL (3.4-4.8)
[2024-01-06 15:11] LABS: CALCIUM 9.7 mg/dL (8.3-10.5)
[2024-01-06 15:12] LABS: TOTAL PROTEIN 7.3 g/dL (6.2-8.1)
[2024-01-06 15:14] LABS: TOTAL BILIRUBIN 1.3 mg/dL (0.2-1.2)
[2024-01-06] MEDS ORDERED: Furosemide 40 MG/4 ML VIAL IV ONE (15:45)
[2024-01-06] MEDS ORDERED: levoFLOXacin 250 MG TABLET PO ONE (16:00)
[2024-01-06] MEDS ORDERED: Iohexol 300 - 100 ML VIAL IV ONE (16:05)
[2024-01-06 16:32] LABS: PH-URINE 5.5 (5.0 - 8.0); URINE APPEARANCE CLEAR (CLEAR); URINE BILIRUBIN 1+ (NEGATIVE); URINE COLOR DARK YELLOW (YELLOW); URINE GLUCOSE NEGATIVE (NEGATIVE); URINE KETONE NEGATIVE (NEGATIVE); URINE NITRATE NEGATIVE (NEGATIVE); URINE PROTEIN(semi-quant) NEGATIVE (NEGATIVE)
[2024-01-06 16:33] LABS: URINE BLOOD NEGATIVE (NEGATIVE); URINE LEUKOCYTE ESTERASE NEGATIVE (NEGATIVE); URINE WBC 0-1 /hpf (0-3)
[2024-01-06] MEDS ORDERED: ALBUTEROL SULF6.7 GM (17:27)
[2024-01-06] MEDS ORDERED: ALBUTEROL2.5 MG/3 M IH (17:27)
[2024-01-06] MEDS ORDERED: BREYNA 160-4.10.3 GM (17:27)
[2024-01-06 19:24] VITALS: BP 139/87
[2024-01-06] MEDS ORDERED: Polyethylene Glycol 3350 Powder 17 GM PACKET PO PRN (19:30)
[2024-01-06] MEDS ORDERED: Acetaminophen 325 MG TAB PO PRN (19:30)
[2024-01-06] MEDS ORDERED: Albuterol 90 MCG/PUFF MDI IH PRN (19:45)
[2024-01-06] MEDS ORDERED: Albuterol/Ipratropium 3 MG-0.5 MG/3 ML Neb Soln IH SCH (21:00)
--- NOTE | 2024-01-06 21:22 | NUR ---
PATIENT ADMITED VIA WC FROM ED. EENT CLEAR. PRODUCTIVE COUGH NOTED WITH DARK THICK SPUTUM PATIENT IS ABLE TO CLEAR ON HIS OWN. LUNGS WHEEZE THROUGHOUT. REPORTS BM THIS MORNING. ATTEMPTED TO PHONE HIS BROTHER AT 1999, UNSUCCESSFULLY. BROTHER NAME GALDINO, . PATIENT STATES WE MAY GIVE INFORMATION TO BROTHER. PATIENT FEELS BETTER SITTING UP IN RECLINER, ABLE TO REST WITHOUT COUGHING SO MUCH AND BREATHING EASIER. CALL LIGHT IN REACH
[2024-01-06 21:54] VITALS: BP 120/79
[2024-01-07] VITALS (8 sets, daily range): BP systolic 79–138; BP diastolic 55–67
--- NOTE | 2024-01-07 00:57 | NUR ---
PATIENT UP IN RECLINER C/O LEG CRAMPING. APAP GIVEN AND VOLTAREN GEL APPLIED TO RIGHT QUAD. CONTINUES TO HAVE PRODUCTIVE COUGH THOUGH NOT FREQUENT.
--- NOTE | 2024-01-07 02:52 | NUR ---
ACAPELLA DEVICE PROVIDED PER PROVIDER TO ASSIST WITH LOOSENING SECRETIONS.
[2024-01-07 06:38] LABS: BASO # 0.06 K/mm3 (0.02-0.10); EOS # 0.45 K/mm3 (0.04-0.40); EOS % 5.3 % (0.0-4.0); HEMATOCRIT 44.1 % (42.0-52.0); HEMOGLOBIN 14.3 g/dL (13.5-18.0); LYMPH# 1.14 K/mm3 (1.50-4.00); MEAN CELL VOLUME 89 fl (78-100); MEAN CORPUSCULAR HEMOGLOBIN 29 pg (27-31); MEAN CORPUSCULAR HGB CONC 32 g/dL (33-37); MEAN PLATELET VOLUME 9.7 fl (7.4-10.4); NEU # 5.82 K/mm3 (1.40-6.50); PLATELET COUNT 194 K/mm3 (130-400); RED BLOOD COUNT 4.94 M/mm3 (4.20-5.60); RED CELL DISTRIBUTION WIDTH 13.3 % (11.5-14.5); WHITE BLOOD COUNT 8.5 K/mm3 (4.8-10.8)
[2024-01-07 06:47] LABS: ALBUMIN 3.7 g/dL (3.4-4.8)
[2024-01-07 06:48] LABS: CALCIUM 9.6 mg/dL (8.3-10.5)
[2024-01-07 06:50] LABS: TOTAL PROTEIN 6.8 g/dL (6.2-8.1)
[2024-01-07 06:51] LABS: TOTAL BILIRUBIN 0.8 mg/dL (0.2-1.2)
--- NOTE | 2024-01-07 07:08 | NUR ---
Critical lab BNP [address] Yusuf . no new orders.
[2024-01-07] MEDS ORDERED: Furosemide 40 MG/4 ML VIAL IV SCH (07:30)
[2024-01-07] MEDS ORDERED: Montelukast 10 MG TAB PO SCH (09:00)
[2024-01-07] MEDS ORDERED: Clopidogrel 75 MG TAB PO SCH (09:00)
[2024-01-07] MEDS ORDERED: levoFLOXacin 250 MG TABLET PO SCH (09:00)
[2024-01-07] MEDS ORDERED: Lisinopril 5 MG TAB PO SCH (09:00)
--- NOTE | 2024-01-07 10:39 | NUR ---
Pt is setting in recliner. He states " I have not been able to sleep over 1 hour last hs due to coughing,sob. He is currently on 2 liters per N/C. He is persistance cough and occassional able to cough up and epectorate. He does have course crackles throught out. He does use call for needs. He did ask to talk with provider today as he reports he did not get lab or xray results. He has large abd girth and has multiple hernias noted. He complains of pain when he coughs in his abd and request to be able to stand up to cough. He is currently on 2000ml fluid restriction. He did receive lasix this am of 40 mg IV. He has voided 350 ml at this time, clear dayana color.
--- NOTE | 2024-01-07 13:45 | NUR ---
Per pt request, pt car moved from [facility] drive up to ED parking area, rolled up windows and locked all 4 doors. Retrieved prepaid phone card and delivered to pt. Returned keys to pt belongings bag in closet. Placed call to brothmiguel Hwang to notify that car had been moved.
--- NOTE | 2024-01-07 14:00 | NUR ---
PT. was started on tele.
--- NOTE | 2024-01-07 18:40 | NUR ---
Pt continues to cough up phlegm and discard. Denies pain except with cough. Pt able to maintain sats 93-94% RA for several hours this afternoon while sitting up in chair. Desats to 87% RA, unable to maintain >90%. Placed 2L O2 via NC, maintains 90-91%. I/O = 922ml/450ml.
--- NOTE | 2024-01-07 19:05 | NUR ---
Report to MAYE Williamson. Note that pt converts to Afib on telemetry. Pt noted to be sleeping, no distress noted. Notified provider, awaken pt, obtain EKG.
--- NOTE | 2024-01-07 19:17 | NUR ---
pt telemetry reporting A-Fib with tachycardia, provider minges notified and new lab orders placed
--- NOTE | 2024-01-07 19:17 | NUR ---
received report from Lexus edwards
[2024-01-07 19:35] LABS: SODIUM 139 mmol/L (136-145)
[2024-01-07 19:36] LABS: CALCIUM 9.7 mg/dL (8.3-10.5)
[2024-01-07 19:37] LABS: GLUCOSE 225 mg/dL (75-110)
[2024-01-07 19:38] LABS: CARBON DIOXIDE 24 mmol/L (23-31)
[2024-01-07 19:49] LABS: TROPONIN-I < 0.030 ng/mL (0.00-0.033)
--- NOTE | 2024-01-07 20:21 | NUR ---
pt alert and oriented x4, pt currently reporting 7/10 chronic pain. pt experiencing shortness of breath but reports some inprovement as this is the first time he has been able to lay in bed. Pt currently on 3 L O2 via NC, telemetry monitoring reporting tachycardia and A-fib. Provider Minges aware of pt status and has placed lab orders. pt is on a 2000 ML fluid restriction, pt now resting in bed with call light in reach, pt denies further needs at this time, bed in lowest position and bed alarmed
[2024-01-07] MEDS ORDERED: Budesonide Neb Soln 0.5 MG/2 ML AMP IH SCH (21:00)
[2024-01-07 21:02] LABS: D-DIMER 0.79 mg/L FEU (0.15-0.50)
[2024-01-07] MEDS ORDERED: Metoprolol Tartrate 1 MG/ML 5 ML VIAL IV ONE (21:45)
--- NOTE | 2024-01-07 22:00 | NUR ---
metoprolol 5mg IV ordered by provider, provider francisco gave verbal order to take a bag of normal saline in and administer 250 mg bolos if pt becomes hypotensive. medication delivered and normal saline hung on IV pole in case needed. pt heart rate currently 130 and blood pressure currently 141/86
--- NOTE | 2024-01-07 22:57 | NUR ---
report given to brandon edwards
[2024-01-07] MEDS ORDERED: NS 1,000 ML IV SCH (23:30)
--- NOTE | 2024-01-07 23:41 | NUR ---
BP 79/64, P 126, coughing sitting up at bedside. Bolus NS 250ml infusing, per order. Findings reported to Dr. Paramjit MD. Bed alarm on, call light within reach.
[2024-01-08 00:08] VITALS: BP 93/83
--- NOTE | 2024-01-08 00:52 | NUR ---
Dr. Yusuf at bedside. BP 93/83, P 131. Agrees to transfer to [facility] for [facility] services. Cardiology outpatient is Dr. Nicole. Pending transfer. Bed in lowest and locked position. Call light within reach.
--- NOTE | 2024-01-08 00:54 | NUR ---
Transfer accepted by [facility] in [place]. VORB to give 250ml NS bolus at this time. Wrap INT for transfer. Awaiting room number.
[2024-01-08 01:07] VITALS: BP 81/64
[2024-01-08] MEDS ORDERED: NS 250 ML IV ONE (01:15)
--- NOTE | 2024-01-08 01:27 | NUR ---
Report given to [facility] nurse at [facility] in [place]. Transfering to room 3382. EMS notified for transfer.
--- NOTE | 2024-01-08 01:30 | NUR ---
EMS called for transfer. ETA 30 minutes
[2024-01-08] MEDS ORDERED: IPRATROPIUM BROM3 M1 IH (01:37)
[2024-01-08] MEDS ORDERED: ENOXAPARIN40 MG/0.1 SQ (01:37)
[2024-01-08] MEDS ORDERED: LASIX 100M100 MG/10 IV (01:37)
[2024-01-08] MEDS ORDERED: POLYETHYLE17 GM/Dose PO (01:37)
[2024-01-08] MEDS ORDERED: LEVOFLOXACIN750 MG PO (01:37)
--- NOTE | 2024-01-08 02:11 | NUR ---
Transfered to [facility], room 3382 by EMS xEMT and Graduate Engineer. [facility] nurse notified of transfer. All personal belongings sent with patient. A&Ox4, 3L per NC, c/o pain a 5 out 10 on a numeric pain scale on ribs d/t coughing. Called Jaiden, brother and left voice mail, awaiting call back.
[2024-01-08] MEDS ORDERED: Furosemide 40 MG/4 ML VIAL IV SCH (09:00)
== END 2024-01-08 02:11 ==
LOC: ED 14:00 → MED/SURG 18:37
PROVIDERS: Family Medicine; ADMIT Family Medicine
DX: I48.92 Unspecified atrial flutter (principal); R79.89 Other specified abnormal findings of blood chemistry; I95.9 Hypotension, unspecified; I11.0 Hypertensive heart disease with heart failure; I50.9 Heart failure, unspecified; E11.9 Type 2 diabetes mellitus without complications; E66.01 Morbid (severe) obesity due to excess calories; M54.9 Dorsalgia, unspecified; N23 Unspecified renal colic; K42.9 Umbilical hernia without obstruction or gangrene; Z87.01 Personal history of pneumonia (recurrent); Z95.5 Presence of coronary angioplasty implant and graft; Z79.02 Long term (current) use of antithrombotics/antiplatelets; Z86.73 Personal history of transient ischemic attack (TIA), and cerebral infarction without residual deficits; Z79.84 Long term (current) use of oral hypoglycemic drugs; Z85.038 Personal history of other malignant neoplasm of large intestine; Z79.82 Long term (current) use of aspirin; Z68.41 Body mass index [BMI] 40.0-44.9, adult
CPT/HCPCS: G0378; J1650; J1940; J7030; J7050; Q9967

== ENCOUNTER → 2024-01-16 | Outpatient (CLI) | payer MEDICARE, MEDICAID ==
[~2024-01-16] MED LIST changes: +ALBUTEROL SULF6.7 GM; +ALBUTEROL2.5 MG/3 M IH; +BREYNA 160-4.10.3 GM; +ENOXAPARIN40 MG/0.1 SQ; +IPRATROPIUM BROM3 M1 IH; +LASIX 100M100 MG/10 IV; +LEVOFLOXACIN750 MG PO; +POLYETHYLE17 GM/Dose PO
[2024-01-16 12:05] LABS: ALBUMIN 3.6 g/dL (3.4-4.8)
[2024-01-16 12:06] LABS: CALCIUM 9.6 mg/dL (8.3-10.5)
[2024-01-16 12:07] LABS: TOTAL PROTEIN 6.2 g/dL (6.2-8.1)
[2024-01-16 12:09] LABS: TOTAL BILIRUBIN 0.3 mg/dL (0.2-1.2)
[2024-01-16 12:14] LABS: MAGNESIUM 2.16 mg/dL (1.60-2.60)
[2024-01-16 12:26] LABS: BASO # 0.04 K/mm3 (0.02-0.10); EOS # 0.19 K/mm3 (0.04-0.40); EOS % 1.6 % (0.0-4.0); HEMOGLOBIN 15.4 g/dL (13.5-18.0); LYMPH# 2.79 K/mm3 (1.50-4.00); MEAN CELL VOLUME 92 fl (78-100); MEAN CORPUSCULAR HEMOGLOBIN 28 pg (27-31); MEAN CORPUSCULAR HGB CONC 31 g/dL (33-37); MONO # 1.35 K/mm3 (0.20-0.80); NEU # 7.44 K/mm3 (1.40-6.50); PLATELET COUNT 267 K/mm3 (130-400); RED BLOOD COUNT 5.43 M/mm3 (4.20-5.60); RED CELL DISTRIBUTION WIDTH 13.3 % (11.5-14.5); WHITE BLOOD COUNT 11.9 K/mm3 (4.8-10.8)
== END ==
LOC: LAB 11:45
PROVIDERS: Internal Medicine
DX: I10 Essential (primary) hypertension (principal); K90.9 Intestinal malabsorption, unspecified; E78.2 Mixed hyperlipidemia

== ENCOUNTER → 2024-07-12 | Outpatient (CLI) | payer OTHER, MEDICAID ==
[2024-07-12 15:10] LABS: BASO # 0.03 K/mm3 (0.02-0.10); EOS # 0.16 K/mm3 (0.04-0.40); HEMATOCRIT 49.1 % (42.0-52.0); HEMOGLOBIN 15.7 g/dL (13.5-18.0); LYMPH# 1.95 K/mm3 (1.50-4.00); MEAN CELL VOLUME 89 fl (78-100); MEAN CORPUSCULAR HEMOGLOBIN 29 pg (27-31); MEAN CORPUSCULAR HGB CONC 32 g/dL (33-37); MEAN PLATELET VOLUME 9.5 fl (7.4-10.4); MONO # 0.71 K/mm3 (0.20-0.80); NEU # 5.04 K/mm3 (1.40-6.50); PLATELET COUNT 187 K/mm3 (130-400); WHITE BLOOD COUNT 7.9 K/mm3 (4.8-10.8)
[2024-07-12 15:18] LABS: ALBUMIN 3.8 g/dL (3.4-4.8)
[2024-07-12 15:19] LABS: CALCIUM 9.4 mg/dL (8.3-10.5)
[2024-07-12 15:21] LABS: TOTAL PROTEIN 7.8 g/dL (6.2-8.1)
[2024-07-12 15:22] LABS: TOTAL BILIRUBIN 0.4 mg/dL (0.2-1.2)
[2024-07-12 15:27] LABS: MAGNESIUM 1.87 mg/dL (1.60-2.60)
== END ==
LOC: LAB 14:52
PROVIDERS: Internal Medicine
DX: Z12.5 Encounter for screening for malignant neoplasm of prostate (principal); I10 Essential (primary) hypertension; K90.9 Intestinal malabsorption, unspecified; E11.9 Type 2 diabetes mellitus without complications; E78.2 Mixed hyperlipidemia